=== PATIENT | female | born 1990 | race Caucasian/White ===

== ENCOUNTER 2020-02-28 09:08 | Emergency (ER) | payer MEDICAID, OTHER ==
--- NOTE | 2020-02-28 09:45 | EDM.PDOC ---
ED HPI GENERAL MEDICAL PROBLEM - General Chief Complaint: Upper Extremity Injury/Pain Stated Complaint: RIGHT SHOULDER PAIN Time Seen by Provider: 02/28/20 09:30 Source of Information: Reports: Patient, RN History Limitations: Reports: No Limitations - History of Present Illness INITIAL COMMENTS - FREE TEXT/NARRATIVE: 29 yo female tripped over her dog's leash last night. Today has pain to the top of her R shoulder and is unable to raise that arm. Thinks she landed on the elbow. 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: Other (see below) (none) - Related Data Allergies Allergy/AdvReac Type Severity Reaction Status Date / Time No Known Allergies Allergy Verified 02/28/20 09:26 Home Meds: Home Meds Ethinyl Estradiol/Drospirenone [Drospirenone-Ee 3-0.03 mg Tab] 1 tab PO DAILY [History] Social & Family History - Tobacco Use Smoking Status *Q: Current Every Day Smoker Years of Tobacco use: 15 Packs/Tins Daily: 0.2 Review of Systems - Review of Systems Review Of Systems: See Below Constitutional: Reports: No Symptoms Musculoskeletal: Reports: Shoulder Pain (right) Skin: Reports: No Symptoms Neurological: Reports: No Symptoms ED EXAM, GENERAL - Physical Exam Exam: See Below Exam Limited By: No Limitations General Appearance: Alert, WD/WN, No Apparent Distress, Obese Extremities: Normal Inspection, No Pedal Edema, Limited Range of Motion (Unable to abduct to 90 degrees on the right. Pain over the R A/C joint, not ballotable. ). No: Normal Range of Motion, Non-Tender, Pedal Edema, Joint Swelling Neurological: Alert, Oriented, CN II-XII Intact, Normal Cognition, No Motor/ Sensory Deficits Psychiatric: Normal Affect, Normal Mood Skin Exam: Warm, Dry, Intact, Normal Color, No Rash Course - Vital Signs Last Recorded V/S: Last Vital Signs Temp 36.1 C 02/28/20 09:31 Pulse 94 02/28/20 09:31 Resp 14 02/28/20 09:31 BP 167/99 H 02/28/20 09:31 Pulse Ox 98 02/28/20 09:31 - Radiology Interpretation Free Text/Narrative:: R shoulder X-ray-Mild AC separation Departure - Departure Time of Disposition: 10:18 Disposition: Home, Self-Care 01 Condition: Fair Clinical Impression: Acromioclavicular (AC) joint injury Qualifiers: Encounter type: initial encounter Laterality: right Qualified Code(s): S49.91XA - Unspecified injury of right shoulder and upper arm, initial encounter Rotator cuff disorder Qualifiers: Laterality: right Qualified Code(s): M67.911 - Unspecified disorder of synovium and tendon, right shoulder - Discharge Information *PRESCRIPTION DRUG MONITORING PROGRAM REVIEWED*: No *COPY OF PRESCRIPTION DRUG MONITORING REPORT IN PATIENT ELLEN: No Instructions: How To Use a Sling, [id number] Referrals: Lina Roblero CNM [Primary Care Provider] - Forms: ED Department Discharge Additional Instructions: Take acetaminophen up to 1000 mg every 6 hrs as needed for pain relief. Add ibuprofen 600 mg every 6 hrs for added relief if needed(next dose after 4 pm today). Wear the sling except when bathing. F/U with orthopedics. Sepsis Event Note - Evaluation Sepsis Screening Result: No Definite Risk - Focused Exam Vital Signs: Vital Signs Temp Pulse Resp BP Pulse Ox 02/28/20 09:31 36.1 C 94 14 167/99 H 98 Date Exam was Performed: 02/28/20 Time Exam was Performed: 10:18
--- NOTE | 2020-02-28 10:06 | CR ---
Shoulder Comp Rt CLINICAL HISTORY: Injury FINDINGS: There is no acute fracture. There is AC joint separation with elevation of the clavicle. Glenohumeral joint appears intact. Impression: Moderate AC separation
[2020-02-28] MEDS ORDERED: Ketorolac 60 MG/2 ML SDV IM ONE (10:21)
== END 2020-02-28 11:43 | disposition home or self-care (01) ==
LOC: JP.ED 09:08
DX: S46.001A Unspecified injury of muscle(s) and tendon(s) of the rotator cuff of right shoulder, initial encounter (principal); F17.210 Nicotine dependence, cigarettes, uncomplicated; W01.0XXA Fall on same level from slipping, tripping and stumbling without subsequent striking against object, initial encounter
CPT/HCPCS: 73030; 96372; 99283; J1885

== ENCOUNTER 2024-09-12 17:24 | Emergency (ER) | payer MEDICAID | END 2024-09-12 18:07 | disposition home or self-care (01) | LOC: JP.ED 17:24 | DX: K08.89 Other specified disorders of teeth and supporting structures (principal); I10 Essential (primary) hypertension; F17.210 Nicotine dependence, cigarettes, uncomplicated | CPT/HCPCS: 99282; 99283 ==